=== PATIENT | male | born 1970 | race Caucasian/White ===

== ENCOUNTER → 2017-04-30 | Outpatient (CLI) | payer OTHER ==
[~2017-04-30] VITALS: Ht 180.3 cm; Wt 141.5 kg
[~2017-04-30] MED LIST: CYCLOBENZAPRINE10 MG PO; HYDROCODONE-AP1 EAC6 PO
--- NOTE | ~2017-04-30 | H ---
[facility] [place] [address] HISTORY AND PHYSICAL Name: MASSIEL HARTLEY [facility] [id number] Admission: 04/30/17 Attend Phys: Nikolai Rosales Discharge: Date of : 66 Report #: [id number] THIS REPORT FOR: //name// CC: iNkolai Champagne DATE OF SERVICE: 04/30/2017 HISTORY OF PRESENT ILLNESS: This is a very pleasant gentleman with atypical chest discomfort, who was seen in the office and underwent noninvasive evaluation which was abnormal for ischemic risk. In view of this, cardiac catheterization was recommended. Since his hospital visit, there has been no change in history, except that the perfusion scan was suspicious for ischemia. PHYSICAL EXAMINATION: GENERAL: Examination showed a well-developed white male, resting comfortably, in no distress. HEENT: Normocephalic, atraumatic. Pupils are equal, round, reactive to light and accommodation. Extraocular muscles are intact. Sclerae and conjunctivae are anicteric. NECK: JVD is normal. Carotid upstrokes are bilaterally symmetrical. No bruits are heard. No thyromegaly. No lymphadenopathy. LUNGS: Clear to auscultation. No wheezes, rhonchi or crackles. No CVA tenderness. CARDIAC: Demonstrates a regular rhythm. Normal first and second heart sounds. No ventricular or atrial gallops, no rubs noted. No murmurs. No lifts or heaves, PMI normal. ABDOMEN: Soft, nontender, nondistended. Normal bowel sounds. EXTREMITIES: Without cyanosis, clubbing or edema. Distal pulses are intact. DTR symmetrical. NEUROLOGIC: Cranial nerves 2-12 are grossly normal and symmetrical. PSYCHIATRIC: Alert, oriented with normal affect. SKIN: Warm and dry. IMPRESSION AND PLAN: Chest pain with abnormal noninvasive assessment. We will proceed with cardiac catheterization. The risks, complications and alternatives of cath, angioplasty and conscious sedation were discussed with the patient. He voices understanding and wishes to proceed. <ELECTRONICALLY SIGNED> By: Nikolai Rosales MD 04/30/17 2112 [id number] [id number] Nikolai Rosales MD /nt
--- NOTE | ~2017-04-30 | CATHLAB ---
[facility] [address] [place] [address] INVASIVE PROCEDURE REPORT Name: MASSIEL HARTLEY [facility] [id number] Admission: 04/30/17 Attend Phys: Nikolai Lee Discharge: Date of : 66 Date of Service: 05/03/17 1008 Report #: [id number] THIS REPORT FOR: //name// APPROVED REPORT Patient Details Patient Status: Out-Patient Room #: The patient is a 46 year-old male Event Personnel Nikolai Rosales Veterinary Parasitologist, Archana Ratliff, Hilary Bermudze RN RN, Yvon Cherry RN, Rajinder Mauro Scrub Procedures Performed Art Access - R femoral artery* Left Heart Cath w/or w/o Coronaries [id number] [facility] Hemostasis w/ Mynx Procedure Narrative The Right Groin^ was infiltrated with 1% Lidocaine subcutaneous anesthesia. A PINNACLE 5FR Sheath #[id number] sheath was inserted into the RFA^. Coronary angiography was performed using coronary diagnostic catheters. The right coronary system was accessed and visualized with a JR 4 catheter. The left coronary system was accessed and visualized with a JL 4 catheter. The left ventricle was accessed and visualized with a JR 4 catheter. Left ventricular/Aortic Valve gradient assessed via catheter pullback. Closure device was deployed with a 5 Fr Mynx. The patient tolerated the procedure well and there were no complications associated with the procedure. There was no hematoma. Intraoperative Conscious Sedation Sedation start time: 10:29 Case end Time: 10:51 Versed 1 mg Fluoro Time: 2.75 minutes Dose: DAP 5320.50 cGycm2 745 mGy Contrast Type and Amount: Omnipaque 70 ml Coronary Angiography The patient's coronary anatomy is right dominant. Diagnostic Cath Left Main MOEDERATE TO LARGE CALIBER OF NORMAL ORIGIN [facility] [address] [place] [address] INVASIVE PROCEDURE REPORT Name: NAEEM,MASSIEL SINGH Room #: [facility] [id number] Admission: 04/30/17 Attend Phys: Nikolai Lee Discharge: Date of : 66 Date of Service: 05/03/17 1008 Report #: [id number] LAD MODERATE CALIBER VESSEL TAPERSIN DISTAL THIRD TO LESS THAN 1.0 MM VESSEL WITH LUMINAL IRREGULARITIES NOTED Circumflex MODERATE TO LARGE CALIBER WITHOUT HIGH GRADE LESIONS L PDA MODERATE CALIBER FREE OF OBSTRUCTIVE LESIONS Right Coronary MOSERATE CALIBER WITH MODERATE SIZR RV MARGINAL FREE OF SIGNIFICANT DISEASE. THE TERMINATE PRIOR TO REACHING CRUX OF THE POSTERIOR WALL Left Ventriculography Left Ventriculography was not performed. Hemodynamics The aortic pressure is 123/83 mmHg with a mean of 86 mmHg. The left ventricular pressure is 138/5 mmHg with a mean of mmHg. The left ventricular end diastolic pressure is 24 mmHg. Conclusion 1. MILD NONOBSTRUCTIVE CORONARY ARTERY DISEASE 2. NORMAL HEMODYNAMICS Recommendations Cardiac Risk Reduction Program Weight Loss Reduction Program <ELECTRONICALLY SIGNED> By: Nikolai Rosales MD 05/03/17 1008 Nikolai Rosales MD /INF
[2017-04-30 08:31] VITALS: BP 132/80
== END | disposition home or self-care (01) ==
LOC: CATH 07:53
DX: I25.10 Atherosclerotic heart disease of native coronary artery without angina pectoris (principal); Z98.890 Other specified postprocedural states; F17.210 Nicotine dependence, cigarettes, uncomplicated